=== PATIENT | female | born 2000 | race Caucasian/White ===

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

== ENCOUNTER 2018-01-01 19:09 | Emergency (ER) | payer BC ==
[~2018-01-01] VITALS: Ht 172.7 cm; Wt 84.0 kg
[2018-01-01 19:16] VITALS: TEMP 36.7; Ht 172.7 cm; Wt 84.0 kg
[2018-01-01] MEDS ORDERED: ONDANSETRON INJ 2 MG/ML 2 ML VIAL IV STA (19:56)
[2018-01-01] MEDS ORDERED: SODIUM CHLORIDE 0.9% 1000ML 1,000 ML IV STA (19:56)
[2018-01-01] MEDS ORDERED: MoRPHine SULFATE 4 MG/ML 1 ML CARP\\VIAL IV STA (19:56)
[2018-01-01 20:21] LABS: BASO % 0.5 %; BASO ABS # 0.04 K/uL (0-0.2); EOS % 1.8 %; EOS ABS # 0.13 K/uL (0-0.5); HEMATOCRIT 43.2 % (37-47); HEMOGLOBIN 15.2 g/dL (12.0-16.0); IG# 0.01 K/uL (0.00-0.02); LYMPH % 30.5 %; LYMPH ABS # 2.26 K/uL (1.2-3.4); MEAN CELL VOLUME 92.1 fL (80-100); MEAN CORPUSCULAR HEMOGLOBIN 32.4 pg (25-34); MEAN CORPUSCULAR HGB CONC 35.2 g/dl (32-36); MEAN PLATELET VOLUME 9.6 fL (7.4-10.4); MONO % 6.5 %; MONO ABS # 0.48 K/uL (0.11-0.59); NEUT % 60.6 %; NEUT ABS # 4.48 K/uL (1.4-6.5); PLATELET COUNT 275 K/uL (130-400); RED CELL DISTRIBUTION WIDTH CV 12.6 % (11.5-14.5); RED CELL DISTRIBUTION WIDTH SD 42.5 fL (36.4-46.3)
--- NOTE | 2018-01-01 20:29 | EMERGENCY ROOM VISIT NOTE ---
History Report prepared by Miah: Santi Ayon Under the Supervision of: Dr. Francie Boo M.D. First contact with patient: 19:23 Chief Complaint: PELVIC PAIN Stated Complaint: PELVIC PAIN, FEVER, VAGINAL DISCHARGE History of Present Illness The patient is a 17 year old female who presents to the Emergency Room with complaints of worsening right sided pelvic pain starting yesterday morning. She rates her discomfort as an 8-9/10 in severity, and she states that it is a stabbing and sharp pain. The pain is better with laying down, and she states that she randomly gets this pain. The patient reports that she has been to the walk in clinic and the ED yesterday for chills, fever, pelvic pain, and vaginal discharge. The patient reports that she has been having yeast infections and BV for the past couple of months. She states that four days ago she was diagnosed with a yeast infection and put on Diflucan, though she states that it did not help. She states that she has been having vaginal discharge that is castanon, white , and goopy, and she states that it smells different than usual. The patient states that she was seen by her [facility] two weeks ago, and she states that she was not having any symptoms at that time. She notes that yesterday she had two pelvic exams, and she states that she was red and inflamed. The patient states that her last menstrual period was 2 weeks ago, and she states that it lasted longer than usual. She states that she has a history of ovarian cyst and endometriosis and ruptured ovarian cyst. The patient is currently on oral contraception, though she states that she is going to try to switch pills soon. The patient states that she has not been sexually active in the past two weeks. Source of History: patient Onset: yesterday morning Position: pelvis (right) Symptom Intensity: 8-9/10 Quality: sharp, stabbing Timing: worsening Modifying Factors (Relieving): other (laying down) Associated Symptoms: + fevers, + chills Note: Associated symptoms: vaginal discharge and different discharge smell Review of Systems See HPI for pertinent positives & negatives. A total of 10 systems reviewed and were otherwise negative. Past Medical & Surgical Medical Problems: (1) Anxiety (2) Asthma (3) GERD (gastroesophageal reflux disease) (4) Migraines Surgical Problems: (1) No history of previous surgery Family History Cancer Heart disease Migraine Social History Smoking Status: Never Smoker Alcohol Use: occasionally Marital Status: single Occupation Status: [employer] student Current/Historical Medications Scheduled Ascorbic Acid (Vitamin C), 1,000 MG PO DAILY Azelastine Hcl (Astelin Nasal [place]), 1 SPRAY NA BID Control Pills ( Control Pills), 1 TAB PO DAILY Budesonide (Inhalation) (Pulmicort Respules 0.25MG/2ML), 1 VIAL INH QPM Cholecalciferol (Vitamin D3), 1,000 INTER.UNIT PO DAILY Doxycycline Hyclate (Doxycycline Hyclate), 1 TAB PO BID Fluticasone Propionate (Nasal) (Flonase Allergy Relief), 1 SPRAY MAUREEN BID Ipratropium-Albuterol (Duoneb), 1 TREATMENT INH Q4H Magnesium Oxide (Mg Supplement (Magnesium), 500 MG PO QPM Mometasone Furoate-Formoterol (Dulera 200/5 Mcg), 1 PUFF INH BID Montelukast Sodium (Singulair), 10 MG PO HS Multivitamin (Multivitamin), 1 TAB PO DAILY Probiotic Product (Probiotic), 1 TAB PO DAILY Sertraline Hcl (Zoloft), 100 MG PO DAILY Terconazole (Terconazole), 1 APPL PV qhs Scheduled PRN Albuterol Sulfate (Proair Respiclick), 2 PUFFS INH UD PRN for Rescue/Asthma Symptoms Clonazepam (Klonopin), 0.5 MG PO BID PRN for Anxiety Epinephrine (Epipen), 0.3 MG IM UD PRN for ALLERGIC REACTION Tramadol (Ultram), 1 TABS PO Q6 PRN for Pain Allergies Coded Allergies: Medroxyprogesterone (Verified Allergy, Unknown, ANAPHYLAXIS, 12/31/17) Shrimp (Verified Allergy, Unknown, ANAPHYLAXIS, 12/31/17) Physical Exam Vital Signs Date Time Temp Pulse Resp B/P (MAP) Pulse Ox O2 Delivery O2 Flow Rate FiO2 01/01/18 23:01 68 16 109/65 98 01/01/18 22:20 76 16 120/72 96 Room Air 01/01/18 20:39 82 16 115/73 96 Room Air 01/01/18 19:16 36.7 98 16 117/82 96 Room Air Physical Exam Vital signs reviewed. General: Well-appearing female, in no significant distress. HEENT: No scleral icterus, PERRLA, neck supple. Atraumatic. Cardiovascular: Regular rate and rhythm, no extra sounds. Pulmonary: Clear to auscultation bilaterally, normal work of breathing. Abdomen: Tenderness in the right lower quadrant, neg rebound, no guarding. Soft , nondistended, positive bowel sounds. Musculoskeletal: Atraumatic, no peripheral edema. Neurologic: Patient awake alert and oriented x 3. Skin: Warm, dry, no rash Medical Decision & Procedures ER Provider Diagnostic Interpretation: Radiology results as stated below per my review and radiologist interpretation: ABDOMEN AND PELVIS CT WITH IV AND ORAL CONTRAST CT DOSE: 385.89 mGy.cm HISTORY: Right lower quadrant abdominal pain. TECHNIQUE: Multiaxial CT images of the abdomen and pelvis were performed following the use of intravenous and oral contrast. A dose lowering technique was utilized adhering to the principles of ALARA. COMPARISON STUDY: Pelvic ultrasound 12/31/2017. FINDINGS: The lung bases are clear. No pneumoperitoneum. No pneumatosis. No fractures within the visualized osseous structures. The liver, gallbladder, pancreas, spleen, adrenal glands, and kidneys are within normal limits. There is a duplicated right renal collecting system. No hydronephrosis. No retroperitoneal lymphadenopathy. Trace pelvic free fluid. The uterus and ovaries are unremarkable. Normal bladder. No bowel wall thickening or obstruction. The visualized appendix is unremarkable. This measures up to 5.7 mm in diameter. IMPRESSION: 1. No bowel wall thickening or obstruction. 2. Normal appendix. 3. Trace pelvic free fluid. This likely physiologic. Electronically signed by: Elvin Regan M.D. 01/01/2018 10:44 PM Dictated Date/Time: 01/01/2018 10:35 PM Laboratory Results 01/01/18 20:05 Red Blood Count 4.69, Mean Corpuscular Volume 92.1, Mean Corpuscular Hemoglobin 32.4, Mean Corpuscular Hemoglobin Concent 35.2, Mean Platelet Volume 9.6, Neutrophils (%) (Auto) 60.6, Lymphocytes (%) (Auto) 30.5, Monocytes (%) (Auto) 6.5, Eosinophils (%) (Auto) 1.8, Basophils (%) (Auto) 0.5, Neutrophils # (Auto) 4.48, Lymphocytes # (Auto) 2.26, Monocytes # (Auto) 0.48, Eosinophils # (Auto) 0.13, Basophils # (Auto) 0.04 01/01/18 20:05 Test 01/01/18 20:05 White Blood Count 7.40 K/uL (4.8-10.8) Red Blood Count 4.69 M/uL (4.2-5.4) Hemoglobin 15.2 g/dL (12.0-16.0) Hematocrit 43.2 % (37-47) Mean Corpuscular Volume 92.1 fL (80-100) Mean Corpuscular Hemoglobin 32.4 pg (25-34) Mean Corpuscular Hemoglobin Concent 35.2 g/dl (32-36) Platelet Count 275 K/uL (130-400) Mean Platelet Volume 9.6 fL (7.4-10.4) Neutrophils (%) (Auto) 60.6 % Lymphocytes (%) (Auto) 30.5 % Monocytes (%) (Auto) 6.5 % Eosinophils (%) (Auto) 1.8 % Basophils (%) (Auto) 0.5 % Neutrophils # (Auto) 4.48 K/uL (1.4-6.5) Lymphocytes # (Auto) 2.26 K/uL (1.2-3.4) Monocytes # (Auto) 0.48 K/uL (0.11-0.59) Eosinophils # (Auto) 0.13 K/uL (0-0.5) Basophils # (Auto) 0.04 K/uL (0-0.2) RDW Standard Deviation 42.5 fL (36.4-46.3) RDW Coefficient of Variation 12.6 % (11.5-14.5) Immature Granulocyte % (Auto) 0.1 % Immature Granulocyte # (Auto) 0.01 K/uL (0.00-0.02) Anion Gap 7.0 mmol/L (3-11) Est Creatinine Clear Calc Drug Dose 133.4 ml/min Estimated GFR () 129.7 Estimated GFR (Non- 111.9 BUN/Creatinine Ratio 14.0 (10-20) Calcium Level 9.4 mg/dl (8.5-10.1) Total Bilirubin 0.3 mg/dl (0.2-1) Direct Bilirubin < 0.1 mg/dl (0-0.2) Aspartate Amino Transf (AST/SGOT) 14 U/L (15-37) Alanine Aminotransferase (ALT/SGPT) 22 U/L (12-78) Alkaline Phosphatase 43 U/L (45-117) Total Protein 7.9 gm/dl (6.4-8.2) Albumin 4.1 gm/dl (3.4-5.0) Laboratory results per my review. Medications Administered Medications (Trade) Dose Ordered Sig/Maria Teresa Route Start Time Stop Time Status Last Admin Dose Admin Sodium Chloride 1,000 ml @ 200 mls/hr Q5H STAT IV 01/01/18 19:56 01/01/18 23:10 DC 01/01/18 20:09 200 MLS/HR Morphine Sulfate (MoRPHine SULFATE INJ) 4 mg NOW STAT IV 01/01/18 19:56 01/01/18 19:58 DC 01/01/18 20:10 4 MG Ondansetron HCl (Zofran Inj) 4 mg NOW STAT IV 01/01/18 19:56 01/01/18 19:58 DC 01/01/18 20:10 4 MG ED Course 1922: Past medical records reviewed. The patient was evaluated in room C6. A complete history and physical examination was performed. 1955: Zofran 4mg IV, Morphine Sulfate 4mg IV, Sodium Chloride 1000 ml @ 200 mls/ hr IV 2254: Upon reevaluation, the patient appeared to have improvement of her symptoms. I discussed findings with her. She verbalized agreement of the treatment plan. She was discharged home. Medical Decision Differential diagnosis: Etiologies such as appendicitis, diverticulitis, PUD, PID, biliary pathology, UTI, pancreatitis, obstruction, mesenteric ischemia, aortic pathology, infections, inflammatory bowel disease, renal colic, as well as others were entertained. This pt was evaluated and appeared to be in no distress. IV access was obtained and lab work was drawn. Pt was medicated with IV morphine and zofran. She was hydrated with NSS. As pt has had multiple pelvic exams and culture pending. CT abd pelvis was performed and reveals a normal appendix. UA and preg were negative yesterday. Pt was given an Rx for terazol 7 vaginal cream for yeast. She states sx were improved after diflucan, but returned. Terazol should give a broader yeast coverage. Pt was encouraged to contact [facility] and [facility] for culture results. She will f/u with OBGYN. She will return to the ED for worsening of symptoms or any medical concerns. Medication Reconcilliation Current Medication List: was personally reviewed by me Blood Pressure Screening Patient's blood pressure: Normal blood pressure Impression Primary Impression: RLQ abdominal pain Additional Impression: Vaginal discharge Scribe Attestation The scribe's documentation has been prepared under my direction and personally reviewed by me in its entirety. I confirm that the note above accurately reflects all work, treatment, procedures, and medical decision making performed by me. Departure Information Dispostion Home / Self-Care Prescriptions Terconazole (Terconazole) 7 Appln/45 Gm Cr 1 APPL PV qhs for 7 Days, #1 BTL Prov: Francie Boo M.D. 01/01/18 Tramadol (Ultram) 50 Mg Tab 1 TABS PO Q6 Y for Pain, #20 TAB Prov: Francie Boo M.D. 01/01/18 Referrals [facility] (PCP) Forms HOME CARE DOCUMENTATION FORM, IMPORTANT VISIT INFORMATION, WORK / SCHOOL INSTRUCTIONS Patient Instructions My [facility] Additional Instructions Diagnosis: Vaginal discharge, right lower quadrant abdominal pain Terazol 7, 1 applicatorful vaginally each night before bed for 1 week. Ultram 50 mg every 6 hours as needed for pain. Continue ibuprofen 600 mg every 6 hours as needed for pain with food. Continue your antibiotics as prescribed. Contact [facility] and [facility] for results of your vaginal cultures. Contact [facility] for follow-up as soon as possible. Return to the ER for worsening of symptoms or any medical concerns. Problem Qualifiers
[2018-01-01 20:46] LABS: ALBUMIN 4.1 gm/dl (3.4-5.0); ALT/SGPT 22 U/L (12-78); CALCIUM 9.4 mg/dl (8.5-10.1); CARBON DIOXIDE 26 mmol/L (21-32); CREATININE 0.77 mg/dl (0.60-1.20); GLUCOSE 72 mg/dl (70-99); SODIUM 137 mmol/L (136-145)
[2018-01-01 20:50] LABS: ALKALINE PHOSPHATASE 43 U/L (45-117); AST/SGOT 14 U/L (15-37); TOTAL PROTEIN 7.9 gm/dl (6.4-8.2)
[2018-01-01 21:10] LABS: BLOOD UREA NITROGEN 11 mg/dl (7-18); POTASSIUM 3.8 mmol/L (3.5-5.1)
[2018-01-01] MEDS ORDERED: DOXY1TAB6 PO (21:12)
[2018-01-01] MEDS ORDERED: OPTIRAY 320 IV PRN (22:15)
--- NOTE | 2018-01-01 22:45 | DIAGNOSTIC IMAGING REPORT ---
ABDOMEN AND PELVIS CT WITH IV AND ORAL CONTRAST CT DOSE: 385.89 mGy.cm HISTORY: Right lower quadrant abdominal pain. TECHNIQUE: Multiaxial CT images of the abdomen and pelvis were performed following the use of intravenous and oral contrast. A dose lowering technique was utilized adhering to the principles of ALARA. COMPARISON STUDY: Pelvic ultrasound 12/31/2017. FINDINGS: The lung bases are clear. No pneumoperitoneum. No pneumatosis. No fractures within the visualized osseous structures. The liver, gallbladder, pancreas, spleen, adrenal glands, and kidneys are within normal limits. There is a duplicated right renal collecting system. No hydronephrosis. No retroperitoneal lymphadenopathy. Trace pelvic free fluid. The uterus and ovaries are unremarkable. Normal bladder. No bowel wall thickening or obstruction. The visualized appendix is unremarkable. This measures up to 5.7 mm in diameter. IMPRESSION: 1. No bowel wall thickening or obstruction. 2. Normal appendix. 3. Trace pelvic free fluid. This likely physiologic. Electronically signed by: Elvin Regan M.D. 01/01/2018 10:44 PM Dictated Date/Time: 01/01/2018 10:35 PM
[2018-01-01] MEDS ORDERED: TRZVC PV (22:54)
[2018-01-01] MEDS ORDERED: TRAM-10 PO (22:54)
[2018-01-01 23:01] VITALS: BP 109/65; PULSE 68; O2SAT 98
== END 2018-01-01 23:00 | disposition home or self-care (01) ==
LOC: C.EDB 19:10 → C.EDC 23:00
DX: R10.31 Right lower quadrant pain (principal); N89.8 Other specified noninflammatory disorders of vagina; F41.9 Anxiety disorder, unspecified; J45.909 Unspecified asthma, uncomplicated; K21.9 Gastro-esophageal reflux disease without esophagitis; G43.909 Migraine, unspecified, not intractable, without status migrainosus; Z80.9 Family history of malignant neoplasm, unspecified; Z82.49 Family history of ischemic heart disease and other diseases of the circulatory system; Z79.3 Long term (current) use of hormonal contraceptives; Z79.899 Other long term (current) drug therapy; Z88.8 Allergy status to other drugs, medicaments and biological substances; Z91.013 Allergy to seafood